=== PATIENT | female | born 1950 | race Two or more races ===

== ENCOUNTER 2019-04-30 07:52 | Emergency (ER) | payer SELFPAY ==
[~2019-04-30] VITALS: Ht 170.2 cm; Wt 54.4 kg
[2019-04-30 08:01] VITALS: BP 126/65
== END 2019-04-30 08:49 | disposition home or self-care (01) ==
LOC: ER 07:56
DX: J11.1 Influenza due to unidentified influenza virus with other respiratory manifestations (principal); Z60.2 Problems related to living alone